=== PATIENT | male | born 1985 | race Caucasian/White ===

== ENCOUNTER → 2022-07-08 | Day surgery (SDC) | payer MEDICAID ==
[~2022-07-08] VITALS: Ht 171.4 cm; Wt 65.8 kg
[~2022-07-08] MED LIST: BUPIVACAINE HCL/PF 0.5% (5MG/ML) 10ML ONE; FINA1TAB18 PO; LACTATED RINGERS 1,000 ML IV SCH; LIDOCAINE HCL 1% 10 MG/ML 10ML VIAL ONE; MULT-1146 PO; OMEG1CAP46 PO; VALA100044 PO
[2022-07-08 06:02] LABS: *AMPHETAMINES SCREEN URINE NEGATIVE (NEGATIVE); *BARBITURATES SCREEN URINE NEGATIVE (NEGATIVE); *BENZODIAZEPINES SCREEN URINE NEGATIVE (NEGATIVE); *COCAINE SCREEN URINE NEGATIVE (NEGATIVE); CANNABINOID URINE SCREEN NEGATIVE (NEGATIVE); METHADONE URINE SCREEN NEGATIVE (NEGATIVE); OPIATES URINE SCREEN NEGATIVE (NEGATIVE); PHENCYCLIDINE URINE SCREEN NEGATIVE (NEGATIVE)
== END | disposition home or self-care (01) ==
LOC: OR 05:24
PROVIDERS: ATTEND Surgery
DX: K43.9 Ventral hernia without obstruction or gangrene (principal); Z53.8 Procedure and treatment not carried out for other reasons; Z79.899 Other long term (current) drug therapy; Z98.890 Other specified postprocedural states; Z20.822 Contact with and (suspected) exposure to COVID-19
CPT/HCPCS: 80305; 87426; 93005; J3490